=== PATIENT | female | born 1975 | race African-American/Black ===

== ENCOUNTER 2017-04-04 17:30 | Emergency (ER) | payer OTHER ==
[~2017-04-04] VITALS: Ht 170.2 cm; Wt 107.0 kg
[~2017-04-04 17:30] MED LIST: MACROBID100 MG PO; NORCO 5/3251 TABLET PO
[2017-04-04] MEDS ORDERED: MOTRIN800 MG PO (19:43)
[2017-04-04] MEDS ORDERED: REGLAN10 MG PO (19:44)
[2017-04-04 20:14] VITALS: BP 120/66
== END 2017-04-04 20:16 | disposition home or self-care (01) ==
LOC: RME 17:30 → EME 17:30 → RME 20:16
DX: R51 Headache (principal); H66.92 Otitis media, unspecified, left ear; G43.909 Migraine, unspecified, not intractable, without status migrainosus; J45.909 Unspecified asthma, uncomplicated; F17.200 Nicotine dependence, unspecified, uncomplicated
CPT/HCPCS: 99281; 99284; J1885

== ENCOUNTER 2018-03-27 19:08 | Emergency (ER) | payer OTHER ==
[~2018-03-27] VITALS: Ht 170.2 cm; Wt 102.8 kg
[~2018-03-27 19:08] MED LIST changes: +FLEXERIL10 MG PO; +MOTRIN800 MG PO; +NAPROSYN500 MG PO; +REGLAN10 MG PO
[2018-03-27] MEDS ORDERED: PRED FORTE100 DROP/5 LEFT EYE (22:42)
[2018-03-27] MEDS ORDERED: COMBIGAN O20 DROP/5 LEFT EYE (22:42)
[2018-03-27 23:49] VITALS: BP 131/94
== END 2018-03-27 23:49 | disposition home or self-care (01) ==
LOC: EME 19:08
DX: S05.12XA Contusion of eyeball and orbital tissues, left eye, initial encounter (principal); H20.9 Unspecified iridocyclitis; W50.0XXA Accidental hit or strike by another person, initial encounter; F17.200 Nicotine dependence, unspecified, uncomplicated
CPT/HCPCS: 70480; 99281; 99284